=== PATIENT | male | born 1985 | race Caucasian/White ===

== ENCOUNTER 2025-10-02 15:37 | Emergency (ER) | payer BC ==
[~2025-10-02] VITALS: Ht 175.3 cm; Wt 99.8 kg
[2025-10-02 17:26] LABS: PLATELET COUNT (AUTO) 270 K/uL (150-450); RED BLOOD CELL COUNT(AUTO) 5.22 MIL/uL (4.5-6.0); RED CELL DISTRIBUTION WIDTH 14.6 % (11.5-15.0); WHITE BLOOD COUNT (AUTO) 7.0 K/uL (4.3-11.0)
[2025-10-02] MEDS ORDERED: IPRATROPIUM NEB FS 0.5 MG/2.5 ML AMPUL.NEB ONE (17:32)
[2025-10-02] MEDS ORDERED: ALBUTEROL FS 2.5 MG/3 ML VIAL.NEB ONE (17:32)
[2025-10-02 17:34] LABS: CALCIUM, SERUM 8.6 mg/dL (8.5-10.1); CREATININE 0.9 mg/dL (0.6-1.3); SODIUM SERUM 142.0 mmol/L (136-145); UREA NITROGEN, BLOOD 15.0 mg/dL (7-18)
[2025-10-02 17:37] VITALS: O2SAT 91
[2025-10-02] MEDS: IPRATROPIUM NEB FS 0.5 MG/2.5 ML AMPUL.NEB NEB ONE (17:37)
[2025-10-02] MEDS: ALBUTEROL FS 2.5 MG/3 ML VIAL.NEB NEB ONE (17:37)
[2025-10-02] MEDS ORDERED: PRED50TA PO (17:46)
[2025-10-02] MEDS ORDERED: GUAI5SYR PO (17:48)
[2025-10-02 17:52] VITALS: BP 128/76; TEMP 98.3; O2SAT 100
== END 2025-10-02 17:53 | disposition home or self-care (01) ==
LOC: ER 15:45
DX: J45.901 Unspecified asthma with (acute) exacerbation (principal); Z79.52 Long term (current) use of systemic steroids
CPT/HCPCS: 36415; 71045-TC; 80048-TC; 85025-TC